=== PATIENT | female | born 2000 | race African-American/Black ===

== ENCOUNTER 2023-03-04 19:04 | Emergency (ER) | payer OTHER ==
[~2023-03-04] VITALS: Ht 172.7 cm; Wt 68.0 kg
[2023-03-04] MEDS ORDERED: P50 MT (19:16)
[2023-03-04] MEDS ORDERED: ALBU90AE INH (19:16)
[2023-03-04 19:41] VITALS: BP 125/66; PULSE 86; RESP 20; O2SAT 100
== END 2023-03-04 20:50 | disposition home or self-care (01) ==
LOC: ER 19:04
DX: R68.89 Other general symptoms and signs (principal)
CPT/HCPCS: 99283